=== PATIENT | female | born 2000 | race Caucasian/White ===

== ENCOUNTER 2022-07-28 14:15 | Outpatient (CLI) | payer OTHER, SELFPAY ==
[2022-07-28 18:17] LABS: Chlamydia DNA Amplified* NOT DETECTED (No Detected); GC DNA Amplified* NOT DETECTED (No Detected)
== END 2022-07-28 14:16 | disposition home or self-care (01) ==
LOC: NFLDREF 14:17
PROVIDERS: PCP Family Medicine; Visit Provider Registered Nurse
DX: N93.9 Abnormal uterine and vaginal bleeding, unspecified (principal)
CPT/HCPCS: 87491; 87591

== ENCOUNTER 2022-08-01 10:19 | Outpatient (CLI) | payer OTHER, SELFPAY ==
[2022-08-01 15:42] LABS: Albumin* 4.5 g/dL (3.3-5.0); Chloride* 106 mmol/L (96-114); Potassium* 4.2 mmol/L (3.6-5.1); Sodium* 138 mmol/L (135-149)
[2022-08-01 15:45] LABS: Alanine Aminotransferase* 18 U/L (4-35); Alkaline Phosphatase* 78 U/L (40-150); Aspartate Amino Transferase* 23 U/L (12-35); Bilirubin Total* 0.5 mg/dL (0.1-1.5); Blood Urea Nitrogen* 13 mg/dL (5-24); Carbon Dioxide* 25 mmol/L (20-32); Creatinine* 0.5 mg/dL (0.5-1.5); Estimated Glomerular Filt Rate 138 ml/min; Glucose* 81 mg/dL (60-115); Total Protein* 7.2 g/dL (6.0-8.3)
[2022-08-01 15:46] LABS: Calcium* 9.1 mg/dL (8.4-10.6)
[2022-08-01 16:01] LABS: Vitamin D 25 Hydroxy* 32 ng/mL (30-80)
[2022-08-01 17:40] LABS: Free T4 Free Thyroxine* 1.01 ng/dL (0.70-1.85)
== END 2022-08-01 10:20 | disposition home or self-care (01) ==
PROVIDERS: PCP Family Medicine; Visit Provider Nurse Practitioner Family
DX: Z79.899 Other long term (current) drug therapy (principal)
CPT/HCPCS: 80053; 82306; 84439; 84443

== ENCOUNTER 2022-08-04 10:48 | Outpatient (CLI) | payer OTHER, SELFPAY ==
--- NOTE | 2022-08-04 11:00 | CRLHL7_ITS ---
For Patients: As a result of the Century Cures Act, medical imaging exams and procedure reports are released immediately into your electronic medical record. You may view this report before your referring provider. If you have questions, please contact your health care provider. INDICATION: ABNORMAL UTERINE BLEEDING COMPARISON: none TECHNIQUE: 2D de leon scale and color Doppler images were acquired of the pelvis using a transabdominal and transvaginal approach. FINDINGS: Sonographic images demonstrate a normal size and smooth outer contour of the uterus. Uterus measures 7.3 cm in length by 3.4 cm in AP diameter by 4.5 cm in transverse dimension. The myometrium has a heterogeneous echotexture. The endometrial lining measures 3 mm in composite thickness. The IUD is somewhat obliquely positioned within the endometrial canal of uncertain significance. The right ovary measures 4.0 x 1.7 x 2.0 cm in size and the left ovary measures 5.1 x 3.3 x 4.4 cm. Simple left ovarian cyst measuring 4.6 x 2.8 x 4.2 cm. The ovaries demonstrate normal arterial and venous blood flow on color Doppler analysis. There are no suspicious fluid collections within the cul-de-sac. IMPRESSION: Oblique position of the IUD within the endometrial canal, best appreciated on the 3D reconstructed images, 34 and 35. Dictated by Lamin Mendes MD @ 08/04/2022 12:14:13 PM (Electronically Signed)
== END 2022-08-04 10:49 | disposition home or self-care (01) ==
LOC: US 10:49
PROVIDERS: PCP Family Medicine; Visit Provider Registered Nurse
DX: N93.9 Abnormal uterine and vaginal bleeding, unspecified (principal)
CPT/HCPCS: 76830; 76856; 93976

== ENCOUNTER 2023-02-07 14:50 | Outpatient (CLI) | payer OTHER, SELFPAY | END 2023-02-07 14:51 | disposition home or self-care (01) | PROVIDERS: PCP Family Medicine; Referring Provider Family Medicine; Visit Provider Family Medicine | DX: E03.9 Hypothyroidism, unspecified (principal); Z11.1 Encounter for screening for respiratory tuberculosis | CPT/HCPCS: 84439; 84443; 86480 ==

== ENCOUNTER 2023-08-01 10:06 | Outpatient (CLI) | payer OTHER, SELFPAY | END 2023-08-01 10:07 | disposition home or self-care (01) | LOC: NFLDREF 08-03 10:26 | PROVIDERS: PCP Family Medicine; Referring Provider Family Medicine; Visit Provider Family Medicine | DX: Z11.59 Encounter for screening for other viral diseases (principal) | CPT/HCPCS: 86706 ==

== ENCOUNTER 2024-08-11 15:14 | Outpatient (CLI) | payer OTHER, SELFPAY ==
[2024-08-11 19:52] LABS: Chlamydia DNA Amplified* NOT DETECTED (No Detected); GC DNA Amplified* NOT DETECTED (No Detected)
== END 2024-08-11 15:15 | disposition home or self-care (01) ==
PROVIDERS: PCP Family Medicine; Visit Provider Obstetrics & Gynecology
DX: Z12.39 Encounter for other screening for malignant neoplasm of breast (principal); Z11.3 Encounter for screening for infections with a predominantly sexual mode of transmission
CPT/HCPCS: 87491; 87591; 87624; 87625; 88141; 88142